=== PATIENT | female | born 1945 | race Caucasian/White ===

== ENCOUNTER 2019-08-12 12:33 | Emergency (ER) | payer OTHER ==
[2019-08-12 12:55] VITALS: BP 130/67
--- NOTE | 2019-08-12 13:45 | UC ---
Respiratory Complaint HPI - HPI Summary HPI Summary: 74 yo woman with 8 to 9 days of upper respiratory symptoms associated with cough , no shortness of breath. In the last 24 hours she has had increasing left ear pain and radiation of sinus pain to the left upper third molar. No fever. Meant to return to [place] by air in 2 days. Has used occasional afrin with relief. - History of Current Complaint Chief Complaint: UCGeneralIllness Stated Complaint: EAR AND TOOTHACHE Time Seen by Provider: 08/12/19 13:34 Hx Obtained From: Patient Onset/Duration: Gradual Onset, Lasting Days Timing: Constant Severity Initially: Moderate Severity Currently: Moderate Pain Intensity: 4 Character: Cough: Nonproductive Aggravating Factors: Deep Breaths Alleviating Factors: OTC Meds Associated Signs And Symptoms: Positive: Chills, URI, Nasal Congestion, Sinus Discomfort - Risk Factors Pulmonary Embolism Risk Factors: Negative Cardiac Risk Factors: Negative Pseudomonas Risk Factors: Negative Tuberculosis Risk Factors: Negative - Allergies/Home Medications Allergies/Adverse Reactions: Allergies Allergy/AdvReac Type Severity Reaction Status Date / Time Penicillins Allergy Unknown Unknown Verified 08/12/19 12:55 Reaction Details Home Medications: Home Medications Aspirin 81 mg PO EVERY OTHER DAY 08/12/19 [History Confirmed 08/12/19] Calcium Carbonate [Calcium] 1,200 mg PO DAILY WITH MEAL 08/12/19 [History Confirmed 08/12/19] Cholecalciferol TAB* [Vitamin D TAB*] 1,000 unit PO DAILY 08/12/19 [History Confirmed 08/12/19] Escitalopram * [Lexapro 10 mg (NF)] 10 mg PO DAILY 08/12/19 [History Confirmed 08/12/19] Simvastatin [Zocor 5 MG-] 10 mg PO DAILY 08/12/19 [History Confirmed 08/12/19] PMH/Surg Hx/FS Hx/Imm Hx Previously Healthy: Yes Endocrine History: Dyslipidemia Psychological History: Depression - Surgical History Surgical History: Yes Surgery Procedure, Year, and Place: appy with bowel. toe right foot 5th digit. Hysterectomy - Family History Known Family History: Positive: Non-Contributory - Social History Occupation: Retired Lives: With Family Alcohol Use: Occasionally Substance Use Type: None Smoking Status (MU): Never Smoked Tobacco Review of Systems All Other Systems Reviewed And Are Negative: Yes Constitutional: Positive: Fatigue, Other - reaction to penicillin was in childhood, with a rash as the reaction Skin: Positive: Negative Eyes: Positive: Negative ENT: Positive: Sore Throat, Ear Ache, Sinus Congestion Respiratory: Positive: Cough. Negative: Shortness Of Breath Cardiovascular: Negative: Palpitations, Chest Pain Gastrointestinal: Positive: Negative Genitourinary: Positive: Negative Motor: Positive: Negative Neurovascular: Positive: Negative Musculoskeletal: Positive: Negative Neurological: Positive: Headache Psychological: Positive: Negative Is Patient Immunocompromised?: No Physical Exam Triage Information Reviewed: Yes Appearance: No Pain Distress, Ill-Appearing Vital Signs: Initial Vital Signs Temp 98.0 F 08/12/19 12:50 Pulse 71 08/12/19 12:50 Resp 19 08/12/19 12:50 BP 130/67 08/12/19 12:50 Pulse Ox 99 08/12/19 12:50 ENT: Positive: Pharyngeal erythema, TM dull, TM red - left TM red and retracted. , Sinus tenderness - percussive tenderness left maxillary sinus. Negative: Tonsillar swelling Dental: Negative: Percussion Tenderness @, Gross Decay/Caries @ Neck: Positive: Supple, Nontender, No Lymphadenopathy Respiratory: Positive: Lungs clear, Normal breath sounds Cardiovascular: Positive: RRR, No Murmur Musculoskeletal Exam: Normal Neurological Exam: Normal Psychological Exam: Normal Skin Exam: Normal Respiratory Course/Dx - Course Course Of Treatment: Will try ceftin for treatment of acute sinusitis with left otitis media. Trial of flonase to promote sinus drainage. - Differential Dx/Diagnosis Differential Diagnosis/HQI/PQRI: Laryngitis, Lower Resp Infection, Sinusitis, Other - left otitis media Provider Diagnosis: Left maxillary sinusitis Discharge ED - Sign-Out/Discharge Documenting (check all that apply): Patient Departure All imaging exams completed and their final reports reviewed: No Studies - Discharge Plan Condition: Stable Disposition: HOME Prescriptions: ceFUROXime 250 MG TAB [Ceftin TAB 250 MG(*)] 500 mg PO BID #20 tab Patient Education Materials: Sinusitis (ED), Ear Infection (ED) Referrals: No Primary Care Phys,NOPCP [Primary Care Provider] - Additional Instructions: Begin use of ceftin 500mg twice daily for treatment of sinusitis and left ear infection. Anticipate that it will take 3 days to have a good response to the treatment. You can improve sinus drainage by use of hot compresses, and also the use of Flonase (fluticasone) steroid spray, using 2 sprays to both nostrils TWICE on the first day, then once daily until pressure relieves. You can use acetaminophen for cotrol of headache pain and discomfort. - Billing Disposition and Condition Condition: STABLE Disposition: Home
== END 2019-08-12 14:05 | disposition home or self-care (01) ==
LOC: UCEAST 12:33
DX: J01.00 Acute maxillary sinusitis, unspecified (principal); R53.83 Other fatigue; E78.5 Hyperlipidemia, unspecified; F32.9 Major depressive disorder, single episode, unspecified; Z79.899 Other long term (current) drug therapy; Z79.82 Long term (current) use of aspirin; Z88.0 Allergy status to penicillin
CPT/HCPCS: 99202; G0463